=== PATIENT | male | born 1995 | race Native Hawaiian/Other Pacific Islander ===

== ENCOUNTER 2016-08-16 18:00 | Emergency (ER) | payer OTHER ==
[2016-08-16] MEDS ORDERED: Acetaminophen TAB* 325 MG PO ONE (19:44)
[2016-08-16] MEDS ORDERED: guaiFENesin ER TAB 600 MG PO ONE (19:44)
[2016-08-16] MEDS: NS 0.9% 1000 ML* 2,000 ML IV ONE (20:19)
[2016-08-16 20:39] LABS: Hematocrit 48 % (42-52); Hemoglobin 16.5 g/dl (14.0-18.0); Mean Corpuscular HGB Conc 34 g/dl (31-36); Mean Corpuscular Hemoglobin 32 pg (27-31); Mean Corpuscular Volume 93 fL (80-94); Mean Platelet Volume 8 um3 (7.4-10.4); Red Cell Distribution Width 13 % (10.5-15)
[2016-08-16 20:52] LABS: Albumin 4.4 g/dL (3.2-5.2); BUN/Creatinine Ratio 8.5 (8-20); C Reactive Protein 25.31 mg/L (< 5.00); Calcium 9.5 mg/dL (8.6-10.3); EGFR African American 115.7 (>60); Globulin 3.2 g/dL (2-4); Potassium 3.7 mmol/L (3.5-5.0); Total Bilirubin 0.5 mg/dL (0.2-1.0); Total Protein 7.6 g/dL (6.4-8.9)
--- NOTE | 2016-08-16 21:29 | ED ---
Adam Loyola Billy, scribed for Bulmaro Duran MD on 08/16/16 at 1939 . Influenza-Like Illness - HPI Summary HPI Summary: Patient is a 20 year-old male coming to [facility] presenting with what he describes as flu-like symptoms for 3 days. He reports fevers, sore throat, wet cough, rhinorrhea, diffuse myalgia, and dizziness. Nothing makes his symptoms better or worse. - History of Current Complaint Chief Complaint: EDFluSymptoms Time Seen by Provider: 08/16/16 19:34 Hx Obtained From: Patient Onset/Duration: Gradual Onset, Lasting Days, Still Present Severity: Moderate Associated Signs & Symptoms: Fever, Myalgia, Cough, Sore Throat, Nasal Congestion - Allergy/Home Medications Allergies/Adverse Reactions: Allergies Allergy/AdvReac Type Severity Reaction Status Date / Time No Known Allergies Allergy Verified 08/16/16 20:17 PMH/Surg Hx/FS Hx/Imm Hx Endocrine/Hematology History: Denies: Hx Diabetes Cardiovascular History: Denies: Hx Hypertension Respiratory History: Reports: Hx Asthma - as a child Infectious Disease History: No Infectious Disease History: Denies: Traveled Outside the [place] in Last 30 Days - Family History Known Family History: Positive: Diabetes - Social History Occupation: Student Alcohol Use: Occasionally Substance Use Type: Reports: None Smoking Status (MU): Never Smoked Tobacco Review of Systems Positive: Fever Positive: Sore Throat, Nasal Discharge Positive: Cough Positive: Myalgia Neurological: Other - dizziness All Other Systems Reviewed And Are Negative: Yes Physical Exam - Summary Physical Exam Summary: Vital signs: Reviewed Gen.: Patient is a well-developed and nourished male in no acute distress. Patient is lying comfortably on the stretcher. Head: Normacephalic and atraumatic Eyes: PERRLA, EOMI x2. Ears: Right and Left ear canal and TM WNL Nose and mouth: Positive runny nose and nasal congestion. No pharyngeal erythema. Neck: Supple, no lymphadenopathy, no JVD Lungs: CTA B/L CVS: S1 & S2 present. No murmurs appreciated. ABDOMEN: Soft, non-tender. No signs of distention. No rebound no guarding, and no masses palpated. Bowel sounds are normal. EXTREMITIES: FROM in all major joints, no edema, no cyanosis or clubbing. NEURO: Alert and oriented x 3. No acute neurological deficits. Speech is normal and follows commands. SKIN: Dry and warm Triage Information Reviewed: Yes Vital Signs On Initial Exam: Initial Vitals Temp Pulse Resp BP Pulse Ox 102.7 F 133 24 127/78 98 08/16/16 18:25 08/16/16 18:25 08/16/16 18:25 08/16/16 18:25 08/16/16 18:25 Vital Signs Reviewed: Yes Diagnostics - Vital Signs Vital Signs Temp Pulse Resp BP Pulse Ox 08/16/16 18:25 102.7 F 133 24 127/78 98 - Laboratory Result Diagrams: 08/16/16 20:15 08/16/16 20:15 Lab Statement: Any lab studies that have been ordered have been reviewed, and results considered in the medical decision making process. Flu Symptom Course/Dx - Course Assessment/Plan: Patient is a 20 year-old male coming to [facility] presenting with what he describes as flu-like symptoms for 3 days. He reports fevers, sore throat, wet cough, rhinorrhea, diffuse myalgia, and dizziness. Nothing makes his symptoms better or worse. Bloodwork WNL excep tfor CRP of 25.3, and influenza A is positive. In the ER course, pt was given IV fluids, tylenol for fever, mucinex for cough, and after these meds, the symptoms improved. He has had these sx for the last 3 days, therefore Tamiflu would be ineffective. At this point, he should be treated symptomatically. He was instructed to take tylenol/ibuprofen for fever, he will be given Zofran for nausea, and he will continue to hydrate. He will be discharged to follow up with PCP. He is A&Ox3, hemodynamically stable. - Diagnoses Differential Diagnosis/HQI/PQRI: Positive: Bronchitis, Influenza, Upper Respiratory Infection Provider Diagnoses: Influenza A Discharge - Discharge Plan Condition: Stable Disposition: HOME Prescriptions: Ondansetron ODT TAB* [Zofran Odt TAB*] 4 mg PO Q6H PRN #10 tab.odt PRN Reason: Vomiting Patient Education Materials: Influenza (ED) Referrals: [facility] [Outside] The documentation as recorded by the Adam bautista Billy accurately reflects the service I personally performed and the decisions made by me, Bulmaro Duran MD.
[2016-08-16 21:38] VITALS: BP 138/68
== END 2016-08-16 21:38 | disposition home or self-care (01) ==
LOC: ED 18:00
DX: J09.X2 Influenza due to identified novel influenza A virus with other respiratory manifestations (principal)
CPT/HCPCS: 36415; 80053; 83605; 85025; 86140; 87502; 87651; 96360; 99282; A9270-GY